=== PATIENT | male | born 2000 | race Caucasian/White ===

== ENCOUNTER 2022-06-03 15:26 | Emergency (ER) | payer MEDICAID, SELFPAY ==
[2022-06-03 15:31] VITALS: BP 125/84; PULSE 72; RESP 16; TEMP 36.8; O2SAT 95
--- NOTE | 2022-06-03 15:38 | ECG_ITS ---
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 Measurements Intervals [place] Rate: 70 P: 61 [place]: 147 QRS: 69 QRSD: 89 T: 47 QT: 334 QTc: 361 Interpretive Statements SINUS RHYTHM WITH SINUS ARRHYTHMIA POSSIBLE ANTERIOR MYOCARDIAL INFARCTION , OF INDETERMINATE AGE No previous ECG available for comparison Electronically Signed On 06-04-2022 13:19:53 CDT by Roxann Caballero M.D. [email or web address] [email or web address] [id number] f
--- NOTE | 2022-06-03 15:38 | W.ED.GENADLT ---
HPI - General Adult General: Chief complaint: General Medical Stated complaint: Coughing up blood Time Seen by Provider: 06/03/22 15:38 History of Present Illness: Mr. Blas is a 21-year-old male with longstanding history of frequent pulmonary infections who presents to the emergency department due to recurrent infection and hemoptysis. He endorses over the past number of months having 4 rounds of respiratory infections treated with antibiotics. He improves and typically is better for about 2 or 3 weeks and then symptoms recur. He is currently on levofloxacin as well as inhaled medications for underlying asthma/COPD. Yesterday he noticed specks of blood in cough and also bloody nose and today he had slightly more as well as generalized malaise. Overall course of symptoms has been worsening. Intensity is moderate. Denies signs of hypovolemia. No other specific changes in health, exacerbating, or alleviating factors identified. Onset (ago): day(s) Severity: moderate Review of Systems General: Reports: 10 or more systems reviewed and unremarkable except in HPI and below PFSH ED PFSH: Medical History History of frequent upper respiratory infection Social History Smoking and tobacco status: current every day smoker cigarettes and smokeless tobacco Smokeless tobacco user: chewing tobacco Quit status (tobacco): not considering quitting Second hand smoke exposure: Yes Alcohol intake: current Alcohol intake frequency: few times a week Alcohol type: beer Desire information about alcohol rehabilitation?: No Desire information about substance/drug rehabilitation?: No Physical Exam Const: COMMON NORMALS: alert GENERAL APPEARANCE: cooperative and well developed HENMT: COMMON NORMALS: normocephalic and atraumatic HEAD & SCALP: normocephalic and atraumatic Eye: COMMON NORMALS: conjunctivae normal CONJUNCTIVA: Yes conjunctivae normal SCLERA: sclerae normal Neck/C-Spine: COMMON NORMALS: supple GENERAL: Yes trachea midline Resp: EFFORT & INSPECTION: Yes able to speak in complete sentences AUSCULTATION: rhonchi Cardio: COMMON NORMALS: regular rate and regular rhythm RATE: regular rate RHYTHM: regular rhythm GI: COMMON NORMALS: Soft to palpation PALPATION: Yes Soft to palpation and No Tenderness to palpation present (GI) Extremity: GENERAL: Yes normal exam except as noted and No edema Neuro: COMMON NORMALS: moves all extremities SENSORIUM/ORIENTATION: Yes alert and No Orientation impaired Psych: COMMON NORMALS: mental status grossly normal and Normal thought process present THOUGHT PROCESS: Normal thought process present Course ED course: - Patient was seen and evaluated by me at bedside - Patient placed on cardiac monitors, IV access obtained - Initial evaluation notable for exam as above. - Labs and xrays personally interpreted by me -RT treatment ordered - Labs notable for leukocytosis, normal hemoglobin. D-dimer negative. Metabolic panel without acute derangement. - Imaging notable for no lobar consolidation or pneumothorax. - Upon serial reexamination after treatment the patient was improved - Based on patient history, evaluation, and testing as interpreted the most likely cause of the patient's condition is bronchitis and hemoptysis - The results of ED evaluation were discussed with the patient including prescriptions and/or symptomatic cares (if applicable) including appropriate and responsible use, followup plan, and return precautions. The patient verbalized understanding and felt safe for discharge. - Patient discharged in satisfactory condition. Note: Click bubbles or prepopulated mir in note writing are used for assistance with data collection and billing and are inherently more limited than narrative and other text portions of this note. Please use narrative for additional clinical history and defer to narrative/free test for any case of contradictory information. If information appears in only free text or click bubble it should be considered present or absent as reported. Please contact note automobile and property underwriter for clarifications of clinical information or contradictory information. MDM is a brief summary, contradictory or erroneous seeming information should be clarified and full note should be reviewed. Vital Signs: Vital signs: Vital Signs Temperature 98.3 F 06/03/22 15:31 Pulse Rate 83 06/03/22 17:46 Respiratory Rate 18 06/03/22 17:46 Blood Pressure 128/84 06/03/22 17:46 Pulse Oximetry 96 06/03/22 17:46 Oxygen Delivery Va thod 06/03/22 16:44 MDM - General Adult Medical Decision Making 21-year-old male with history of frequent respiratory infections presenting with respiratory symptoms and trace hemoptysis. Patient is nontoxic in appearance. Hemoglobin normal. Leukocytosis is present but no other sirs criteria. He improved with RT treatment. Satisfactory for outpatient management. Strict follow-up and return precautions given. Medical Records I reviewed the patient's medical records. Lab Data I reviewed the patient's lab results. : 06/03/22 16:05 06/03/22 16:05 Radiology Impressions Chest X-Ray 06/03/22 16:35 IMPRESSION: No acute findings. Laboratory Results WBC 16.8 10^3/uL (4.0-10.0) H 06/03/22 16:05 RBC 4.59 10^6/uL (4.1-5.3) 06/03/22 16:05 Hgb 13.6 g/dL (11.7-16.6) 06/03/22 16:05 Hct 41.7 % (42.0-52.0) L 06/03/22 16:05 MCV 90.8 fl (80-94) 06/03/22 16:05 MCH 29.6 pg (28.0-34.0) 06/03/22 16:05 MCHC 32.6 g/dL (30.0-36.0) 06/03/22 16:05 RDW 13.5 % (12.1-15.1) 06/03/22 16:05 Plt Count 320 10^3/cmm (130-400) 06/03/22 16:05 MPV 9.8 fL (7.4-10.4) 06/03/22 16:05 Neut % (Auto) 68.7 % 06/03/22 16:05 Lymph % (Auto) 19.0 % 06/03/22 16:05 [place] % (Auto) 11.1 % 06/03/22 16:05 Eos % (Auto) 0.5 % 06/03/22 16:05 Baso % (Auto) 0.3 % 06/03/22 16:05 Neut # (Auto) 11.54 10^3/uL (1.8-7.7) H 06/03/22 16:05 Lymph # (Auto) 3.2 10^3/uL (0.8-4.8) 06/03/22 16:05 [place] # (Auto) 1.9 10^3/uL (0.2-0.9) H 06/03/22 16:05 Eos # (Auto) 0.1 10^3/uL (0.0-0.8) 06/03/22 16:05 Baso # (Auto) 0.1 10^3/uL (0.0-0.1) 06/03/22 16:05 Nucleated RBC % (auto) 0 % 06/03/22 16:05 Nucleated RBCs # 0.0 /100WBC 06/03/22 16:05 PT 13.20 SECONDS (12.1-14.9) 06/03/22 16:05 INR 0.98 (0.8-1.2) 06/03/22 16:05 APTT 30.8 SECONDS (23.9-36.7) 06/03/22 16:05 D-Dimer 0.31 ug/mIFEU (0-0.59) 06/03/22 16:05 Sodium 142 mmol/L (136-145) 06/03/22 16:05 Potassium 3.7 mmol/L (3.5-5.1) 06/03/22 16:05 Chloride 104 mmol/L (98-107) 06/03/22 16:05 Carbon Dioxide 24 mmol/L (22-29) 06/03/22 16:05 Anion Gap 17.7 (5-19) 06/03/22 16:05 BUN 14 mg/dL (6-20) 06/03/22 16:05 Creatinine 0.6 mg/dL (0.7-1.2) L 06/03/22 16:05 GFR Calculation 168.5 mL/min (90-130) H 06/03/22 16:05 Glucose 78 mg/dL (65-115) 06/03/22 16:05 Calculated Osmolality 293 mOsm/kg (285-295) 06/03/22 16:05 Lactic Acid 1.0 mmol/L (0.5-2.2) 06/03/22 16:05 Calcium 9.3 mg/dL (8.5-10.5) 06/03/22 16:05 Total Bilirubin 0.2 mg/dL (0.15-1.2) 06/03/22 16:05 AST 36 U/L (0-40) 06/03/22 16:05 ALT 30 U/L (0-41) 06/03/22 16:05 Alkaline Phosphatase 88 U/L (40-130) 06/03/22 16:05 Total Protein 7.3 g/dL (6.6-8.7) 06/03/22 16:05 Albumin 4.8 g/dL (3.5-5.2) 06/03/22 16:05 Globulin 2.5 g/dL (1.3-4.6) 06/03/22 16:05 Discharge Plan Discharge Patient Disposition: Home Clinical Impression: Cough with hemoptysis, Bronchitis Condition: Stable Prescriptions: No Action montelukast 10 mg Tablet 10 mg PO DAILY Flonase 50 mcg/actuation [place],Suspension 1 spray INTRANASAL DAILY Rx Instructions: administer into each nostril albuterol sulfate 2.5 mg /3 mL (0.083 %) solution for nebulization 2.5 mg inhalation TID PRN (Reason: Shortness Of Breath Or Wheezing) prednisone 20 mg Tablet 20 mg PO DAILY levofloxacin 750 mg tablet 750 mg PO DAILY albuterol sulfate 90 mcg/actuation HFA aerosol inhaler 2 puff INHALATION Q6H PRN (Reason: Shortness Of Breath Or Wheezing) Flovent HFA 110 mcg/actuation HFA aerosol inhaler 1 puff INHALATION DAILY Mucinex 600 mg Tablet Extended Release 12hr 600 mg PO Q12H PRN (Reason: Congestion) Discharge Orders: Discharge ED (Routine); Ordered 06/03/22 Ordered By: Marin Velasco Discharge Diet: Usual diet Discharge Activity: Increase activity as tolerated Patient Instructions: Coughing Up Blood (Hemoptysis) (ED) Activity Restrictions/Additional Instructions: Thank you for visiting the emergency department. You were seen and evaluated for coughing up blood. The exact cause of your symptoms is unclear though likely related to bronchial irritation from infection. Please continue your antibiotic regimen and previously prescribed respiratory treatments. I will refer you to for follow-up with pulmonology given your history of frequent infections. Return to the emergency department for worsening symptoms or anything else that you are concerned about a feel needs emergency department evaluation. Coding Level of Care Code ED Standards Engineer for Domonique Fwd Exam Comprehensive
[2022-06-03 15:56] VITALS: BP 118/90; PULSE 79; RESP 19; O2SAT 96
[2022-06-03] MEDS: ipratropium-albuterol 3 mL Neb INHALATION (16:20)
[2022-06-03 16:23] VITALS: PULSE 72; RESP 18; O2SAT 97
[2022-06-03 16:27] LABS: Basophils # 0.1 10^3/uL (0.0-0.1); Basophils % 0.3 %; Eosinophils # 0.1 10^3/uL (0.0-0.8); Eosinophils % 0.5 %; Hematocrit 41.7 % (42.0-52.0); Hemoglobin 13.6 g/dL (11.7-16.6); Lymphocytes # 3.2 10^3/uL (0.8-4.8); Mean Corpuscular HGB Conc 32.6 g/dL (30.0-36.0); Mean Corpuscular Hemoglobin 29.6 pg (28.0-34.0); Mean Corpuscular Volume 90.8 fl (80-94); Mean Platelet Volume 9.8 fL (7.4-10.4); Monocytes # 1.9 10^3/uL (0.2-0.9); Monocytes % 11.1 %; Neutrophils # 11.54 10^3/uL (1.8-7.7); Neutrophils % 68.7 %; Nucleated Red Blood Cells % 0 %; Platelet Count 320 10^3/cmm (130-400); Red Blood Count 4.59 10^6/uL (4.1-5.3); Red Cell Distribution Width 13.5 % (12.1-15.1); White Blood Count 16.8 10^3/uL (4.0-10.0)
[2022-06-03 16:28] VITALS: PULSE 73; RESP 18; O2SAT 97
[2022-06-03 16:30] LABS: INR 0.98 (0.8-1.2)
[2022-06-03 16:31] LABS: Partial Thromboplastin Time 30.8 SECONDS (23.9-36.7)
[2022-06-03 16:33] LABS: D Dimer 0.31 ug/mIFEU (0-0.59)
--- NOTE | 2022-06-03 16:35 | XRR_ITS ---
PROCEDURE INFORMATION: Exam: XR Chest Exam date and time: 06/03/2022 4:40 PM Age: 21 years old Clinical indication: Cough TECHNIQUE: Imaging protocol: Radiologic exam of the chest. Views: 1 view. COMPARISON: No relevant prior studies available. FINDINGS: Lungs: Unremarkable. No consolidation. Pleural spaces: Unremarkable. No pleural effusion. No pneumothorax. Heart/Mediastinum: Unremarkable. No cardiomegaly. Bones/joints: Unremarkable. XR/XR chest 1V portable [id number] IMPRESSION: No acute findings.
[2022-06-03 16:44] VITALS: BP 131/92; RESP 18; O2SAT 96
[2022-06-03 17:13] LABS: Alanine Aminotransferase 30 U/L (0-41); Albumin Level 4.8 g/dL (3.5-5.2); Alkaline Phosphatase 88 U/L (40-130); Anion Gap 17.7 (5-19); Aspartate Amino Transferase 36 U/L (0-40); Blood Urea Nitrogen 14 mg/dL (6-20); Calcium 9.3 mg/dL (8.5-10.5); Carbon Dioxide 24 mmol/L (22-29); Chloride 104 mmol/L (98-107); Globulin 2.5 g/dL (1.3-4.6); Glomerular Filtration Rate 168.5 mL/min (90-130); Glucose 78 mg/dL (65-115); Osmolality Calculated 293 mOsm/kg (285-295); Potassium 3.7 mmol/L (3.5-5.1); Sodium 142 mmol/L (136-145); Total Bilirubin 0.2 mg/dL (0.15-1.2); Total Protein 7.3 g/dL (6.6-8.7)
[2022-06-03 17:46] VITALS: BP 128/84; PULSE 83; RESP 18; O2SAT 96
--- NOTE | 2022-06-07 10:45 | DCPLANNER ---
Addendum entered by Aileen Lama 07/01/22 10:03: Patient had a follow up appointment with Dr. Araujo with [facility] - patient did attend appointment. Addendum entered by Aileen Lama 06/09/22 08:45: Patient has a follow up appointment scheduled for , June 30, 2022 at 11:[address] Araujo at [facility]. Clinic will call patient with appointment information. Original Note: manager aerospace had message to schedule a follow up appointment for patient with pulmonology. manager aerospace sent patients information to the front office staff at [facility]. Patients information will be printed and reviewed. Clinic will call patient with appointment information.
== END 2022-06-03 17:48 | disposition home or self-care (01) ==
PROVIDERS: Emergency Provider Emergency Medicine
DX: R04.2 Hemoptysis (principal); J40 Bronchitis, not specified as acute or chronic; F17.220 Nicotine dependence, chewing tobacco, uncomplicated
CPT/HCPCS: 71045; 80053; 83605; 85025; 85378; 85610; 85730; 93005; 94640; 99285

== ENCOUNTER → 2022-06-30 13:00 | Outpatient (BNVA) | payer MEDICAID, SELFPAY | PROVIDERS: Visit Provider Internal Medicine Pulmonary Disease | DX: T78.40XA Allergy, unspecified, initial encounter (principal); F17.200 Nicotine dependence, unspecified, uncomplicated; R06.09 Other forms of dyspnea; Z09 Encounter for follow-up examination after completed treatment for conditions other than malignant neoplasm; Z87.09 Personal history of other diseases of the respiratory system; J45.909 Unspecified asthma, uncomplicated; R06.02 Shortness of breath | CPT/HCPCS: 36415; 82103; 82784; 82785; 86003 ==

== ENCOUNTER 2023-07-27 17:08 | Emergency (ER) | payer OTHER, MEDICAID, SELFPAY ==
[2023-07-27 17:24] VITALS: BP 125/77; PULSE 72; RESP 16; TEMP 36.9; O2SAT 96; BMI 20.7
[2023-07-27] MEDS: lidocaine-epi 1% 20 mL INJ 5 ML XX (18:50)
--- NOTE | 2023-07-27 19:01 | PC.NURSE ---
Per Dr Wu 5ml lidocaine with epi applied to 4x4 and placed onto bleeding gums.
--- NOTE | 2023-07-27 19:26 | W.ED.DENTAL ---
HPI - Dental/Oral General: Chief complaint: Dental/Oral Stated complaint: teeth pulled at 7 and still bleed bad Time Seen by Provider: 07/27/23 18:36 History of Present Illness: Patient presents to the ER with complaints of having his for was a people this morning and having bleeding in his right upper tooth socket. Patient has been biting down on gauze and it still bleeding. Patient has not been able to stop the bleeding. Review of Systems General: Reports: 10 or more systems reviewed and unremarkable except in HPI and below PFSH ED PFSH: Medical History History of frequent upper respiratory infection Periodontal disease Social History Smoking and tobacco/nicotine status: current some day tobacco/nicotine user cigarettes and smokeless tobacco Smokeless tobacco user: chewing tobacco Quit status (tobacco/nicotine): not considering quitting Second hand smoke exposure: Yes Alcohol intake: current Alcohol intake frequency: few times a week Alcohol type: beer Substance/Drug Use: never Physical Exam Const: COMMON NORMALS: no acute distress, average body habitus, patient oriented x3, no limitations, healthy appearing, alert and well nourished HENMT: COMMON NORMALS: normocephalic, atraumatic, hearing grossly normal bilaterally, external ears normal, Normal external nose present and moist oral mucous membranes; dentition not normal (All 4 wisdom teeth extraction sites visible. Bleeding is noted from the ri) HEAD & SCALP: normocephalic and atraumatic NOSE: Normal external nose present EXTERNAL EAR: Yes external ears normal Neck/C-Spine: COMMON NORMALS: full ROM, no lymphadenopathy, supple, no meningeal signs, no JVD and Thyroid normal THYROID: Thyroid normal Chest: COMMONS NORMALS: normal inspection of the chest and normal palpation of entire chest wall Resp: COMMON NORMALS: normal respiratory effort, No retractions, No use of accessory muscles and clear to auscultation bilaterally AUSCULTATION: clear to auscultation bilaterally Cardio: COMMON NORMALS: no JVD, regular rate, regular rhythm, S1 normal heart sound present, S2 normal heart sound present, No gallops present (Cardio), No clicks present (Cardio), No murmurs present (Cardio) and No rub (Cardio) RATE: regular rate RHYTHM: regular rhythm HEART SOUNDS: S1 normal heart sound present and S2 normal heart sound present GI: COMMON NORMALS: Normal to inspection, nondistended, normoactive bowel sounds present, Soft to palpation, non-tender, No hepatosplenomegaly present and no masses PALPATION: Yes Soft to palpation and Yes No hepatosplenomegaly present Neuro: COMMON NORMALS: patient oriented x3 SENSORIUM/ORIENTATION: Yes alert MENINGEAL SIGNS: Yes no meningeal signs Course Vital Signs: Vital signs: Vital Signs Temperature 98.4 F 07/27/23 17:24 Pulse Rate 72 07/27/23 17:24 Respiratory Rate 16 07/27/23 17:24 Blood Pressure 125/77 07/27/23 17:24 Pulse Oximetry 96 07/27/23 17:24 Oxygen Delivery Me thod Room Air 07/27/23 17:24 MDM - Dental/Oral Medical Decision Making Patient presents with bleeding from his right upper wisdom tooth socket from extraction this morning. Patient was instructed to bite down on lidocaine with epi soaked gauze to control bleeding. Anticipate that this will eliminate the bleeding and patient be able to be discharged home. Differential Diagnosis Unlikely gingival abscess, dental caries, toothache, dental abscess, fracture of tooth or aphthous ulcer Medical Records I reviewed the patient's medical records. Lab Data I reviewed the patient's lab results. No radiology studies performed this visit Discharge Plan Discharge Patient Disposition: Home Clinical Impression: S/P tooth extraction, Bleeding from mouth Condition: Stable Prescriptions: No Action amoxicillin 500 mg tablet 500 mg PO BID 10 Days Qty: 20 0RF Discharge Orders: Discharge ED (Routine); Ordered 07/27/23 Ordered By: Reyes Wu Patient Instructions: Postoperative Bleeding (ED) Activity Restrictions/Additional Instructions: Please use ice water and cold compresses as needed to help control bleeding. Please limit the use of aspirin and/or anti-inflammatories as they may make the bleeding worse. Please follow-up with your dentist on an as-needed basis. Coding Level of Care Code ED Discovery Guide for Domonique Newton
[2023-07-27] MEDS: acetaminophen 500 mg Tablet 1000 MG PO (20:51)
[2023-07-27 20:57] VITALS: PULSE 73; RESP 16; O2SAT 97
== END 2023-07-27 20:59 | disposition home or self-care (01) ==
PROVIDERS: Emergency Provider Emergency Medicine
DX: K91.840 Postprocedural hemorrhage of a digestive system organ or structure following a digestive system procedure (principal); Z98.818 Other dental procedure status; F17.220 Nicotine dependence, chewing tobacco, uncomplicated; F17.210 Nicotine dependence, cigarettes, uncomplicated
CPT/HCPCS: 99283